=== PATIENT | female | born 1950 | race Asian ===

== ENCOUNTER 2019-08-28 10:00 | Outpatient (CLI) | payer MEDICARE, OTHER | END 2019-08-28 10:01 | disposition home or self-care (01) | LOC: DI 10:00 | PROVIDERS: ATTEND Internal Medicine | DX: R60.0 Localized edema (principal) | CPT/HCPCS: 93306 ==

== ENCOUNTER 2020-03-12 12:13 | Outpatient (CLI) | payer MEDICARE, OTHER ==
[2020-03-12 15:17] LABS: HGB - HEMOGLOBIN 10.3 g/dL (12.0-16.0); LYMPHOCYTES # (AUTO) 0.7 10^3/uL (1.5-3.5); LYMPHOCYTES % (AUTO) 23.2 %; MEAN CORPUSCULAR HEMOGLOBIN 41.7 pg (27.0-31.0); MEAN CORPUSCULAR HGB CONC 33.4 g/dL (32.0-36.0); MEAN CORPUSCULAR VOLUME 124.7 fL (81.0-99.0); MEAN PLATELET VOLUME 10.1 fL (7.9-10.8); MONOCYTES # (AUTO) 0.3 10^3/uL (0.0-1.0); NEUTROPHILS # (AUTO) 1.9 10^3/uL (1.5-6.6); NEUTROPHILS % (AUTO) 64.4 %; PLT - PLATELET COUNT 207 10^3/uL (130-450); RED BLOOD COUNT 2.47 10^6/uL (4.20-5.40); RED CELL DISTRIBUTION WIDTH 16.4 % (12.0-15.0); WHITE BLOOD COUNT 2.9 x10^3/uL (4.8-10.8)
[2020-03-12 15:23] LABS: INR 1.4 (0.8-1.2)
[2020-03-12 15:33] LABS: ALBUMIN 2.8 g/dL (3.2-5.5); BILIRUBIN,TOTAL 2.9 mg/dL (0.2-1.0); CREATININE 0.9 mg/dL (0.4-1.0); TOTAL PROTEIN 7.7 g/dL (6.7-8.2)
[2020-03-12 15:41] LABS: THYROID STIMULATING HORMONE 4.47 uIU/mL (0.34-5.60)
[2020-03-12 15:43] LABS: FREE T3 3.75 pg/mL (2.5-3.9)
[2020-03-12 15:47] LABS: FREE T4 (FREE THYROXINE) 0.94 ng/dL (0.58-1.64)
[2020-03-12 16:30] LABS: PLATELET ESTIMATE, MANUAL NORMAL (130-450,000) (NORMAL); PLATELET MORPHOLOGY NORMAL APPEARANCE (NORMAL)
[2020-03-12 16:31] LABS: DIFFERENTIAL COMMENT MANUAL=AUTO DIFF
== END 2020-03-12 12:14 | disposition home or self-care (01) ==
LOC: LAB.S 12:13
PROVIDERS: ATTEND Internal Medicine Gastroenterology
DX: K75.4 Autoimmune hepatitis (principal); E03.8 Other specified hypothyroidism
CPT/HCPCS: 36415; 80048; 80076; 84439; 84443; 84481; 85025; 85610

== ENCOUNTER 2020-03-19 09:36 | Outpatient (CLI) | payer MEDICARE, OTHER ==
[2020-03-19 15:05] LABS: BASOPHILS % (AUTO) 1.2 %; EOSINOPHILS # (AUTO) 0.1 10^3/uL (0.0-0.7); EOSINOPHILS % (AUTO) 4.4 %; HGB - HEMOGLOBIN 9.9 g/dL (12.0-16.0); LYMPHOCYTES # (AUTO) 0.4 10^3/uL (1.5-3.5); LYMPHOCYTES % (AUTO) 16.9 %; MEAN CORPUSCULAR HEMOGLOBIN 44.6 pg (27.0-31.0); MEAN CORPUSCULAR VOLUME 127.5 fL (81.0-99.0); MEAN PLATELET VOLUME 10.3 fL (7.9-10.8); MONOCYTES # (AUTO) 0.3 10^3/uL (0.0-1.0); MONOCYTES % (AUTO) 13.3 %; NEUTROPHILS # (AUTO) 1.6 10^3/uL (1.5-6.6); PLT - PLATELET COUNT 116 10^3/uL (130-450); RED BLOOD COUNT 2.22 10^6/uL (4.20-5.40); RED CELL DISTRIBUTION WIDTH 16.9 % (12.0-15.0); WHITE BLOOD COUNT 2.5 x10^3/uL (4.8-10.8)
[2020-03-19 15:22] LABS: INR 1.4 (0.8-1.2); PT - PROTHROMBIN TIME 15.3 secs (9.9-12.6)
[2020-03-19 15:25] LABS: ALBUMIN 2.6 g/dL (3.2-5.5); BILIRUBIN,DIRECT 0.9 mg/dL (0.1-0.5); BILIRUBIN,TOTAL 2.4 mg/dL (0.2-1.0); CALCIUM 8.4 mg/dL (8.5-10.3); CREATININE 0.8 mg/dL (0.4-1.0); TOTAL PROTEIN 6.9 g/dL (6.7-8.2)
[2020-03-19 16:09] LABS: PLATELET ESTIMATE, MANUAL DECREASED (<130,000) (NORMAL); PLATELET MORPHOLOGY NORMAL APPEARANCE (NORMAL); RBC MORPHOLOGY (MULTIPLE) 2+ ANISOCYTOSIS (NORMAL)
== END 2020-03-19 09:37 | disposition home or self-care (01) ==
LOC: LAB.S 09:36
PROVIDERS: ATTEND Internal Medicine Gastroenterology
DX: K76.4 Peliosis hepatis (principal); K75.4 Autoimmune hepatitis
CPT/HCPCS: 36415; 80048; 80076; 85025; 85610

== ENCOUNTER 2020-04-02 10:09 | Outpatient (CLI) | payer MEDICARE, OTHER ==
[2020-04-02 14:57] LABS: BASOPHILS % (AUTO) 1.1 %; EOSINOPHILS # (AUTO) 0.1 10^3/uL (0.0-0.7); EOSINOPHILS % (AUTO) 3.2 %; HGB - HEMOGLOBIN 10.8 g/dL (12.0-16.0); INR 1.5 (0.8-1.2); LYMPHOCYTES # (AUTO) 0.5 10^3/uL (1.5-3.5); LYMPHOCYTES % (AUTO) 25.1 %; MEAN CORPUSCULAR HEMOGLOBIN 43.7 pg (27.0-31.0); MEAN CORPUSCULAR HGB CONC 34.7 g/dL (32.0-36.0); MEAN CORPUSCULAR VOLUME 125.9 fL (81.0-99.0); MEAN PLATELET VOLUME 10.1 fL (7.9-10.8); MONOCYTES # (AUTO) 0.3 10^3/uL (0.0-1.0); MONOCYTES % (AUTO) 15.5 %; PLT - PLATELET COUNT 225 10^3/uL (130-450); PT - PROTHROMBIN TIME 16.7 secs (9.9-12.6); RED BLOOD COUNT 2.47 10^6/uL (4.20-5.40); RED CELL DISTRIBUTION WIDTH 15.9 % (12.0-15.0)
[2020-04-02 15:33] LABS: WHITE BLOOD COUNT 1.9 x10^3/uL (4.8-10.8)
[2020-04-02 15:36] LABS: ALBUMIN 2.9 g/dL (3.2-5.5); BILIRUBIN,DIRECT 0.9 mg/dL (0.1-0.5); BILIRUBIN,TOTAL 2.8 mg/dL (0.2-1.0); CREATININE 0.8 mg/dL (0.4-1.0); TOTAL PROTEIN 7.6 g/dL (6.7-8.2)
[2020-04-02 16:42] LABS: DIFFERENTIAL COMMENT MANUAL=AUTO DIFF; PLATELET ESTIMATE, MANUAL NORMAL (130-450,000) (NORMAL); PLATELET MORPHOLOGY NORMAL APPEARANCE (NORMAL)
== END 2020-04-02 10:10 | disposition home or self-care (01) ==
LOC: LAB.S 10:09
PROVIDERS: ATTEND Internal Medicine Gastroenterology
DX: K75.4 Autoimmune hepatitis (principal)
CPT/HCPCS: 36415; 80048; 80076; 85025; 85610

== ENCOUNTER 2020-05-29 11:11 | Outpatient (CLI) | payer MEDICARE, OTHER ==
[2020-05-29 15:08] LABS: BASOPHILS % (AUTO) 0.8 %; EOSINOPHILS # (AUTO) 0.1 10^3/uL (0.0-0.7); EOSINOPHILS % (AUTO) 3.5 %; HGB - HEMOGLOBIN 11.9 g/dL (12.0-16.0); LYMPHOCYTES # (AUTO) 0.5 10^3/uL (1.5-3.5); LYMPHOCYTES % (AUTO) 20.8 %; MEAN CORPUSCULAR HEMOGLOBIN 39.1 pg (27.0-31.0); MEAN CORPUSCULAR HGB CONC 33.6 g/dL (32.0-36.0); MEAN CORPUSCULAR VOLUME 116.4 fL (81.0-99.0); MEAN PLATELET VOLUME 9.9 fL (7.9-10.8); MONOCYTES # (AUTO) 0.4 10^3/uL (0.0-1.0); MONOCYTES % (AUTO) 16.5 %; NEUTROPHILS # (AUTO) 1.5 10^3/uL (1.5-6.6); NEUTROPHILS % (AUTO) 57.6 %; PLT - PLATELET COUNT 141 10^3/uL (130-450); RED BLOOD COUNT 3.04 10^6/uL (4.20-5.40); RED CELL DISTRIBUTION WIDTH 13.5 % (12.0-15.0); WHITE BLOOD COUNT 2.6 x10^3/uL (4.8-10.8)
[2020-05-29 15:11] LABS: ALBUMIN 3.1 g/dL (3.2-5.5); BILIRUBIN,DIRECT 0.4 mg/dL (0.1-0.5); BILIRUBIN,TOTAL 1.8 mg/dL (0.2-1.0); CALCIUM 9.2 mg/dL (8.5-10.3); CREATININE 0.9 mg/dL (0.4-1.0); TOTAL PROTEIN 7.3 g/dL (6.7-8.2)
[2020-05-29 15:53] LABS: INR 1.3 (0.8-1.2); PT - PROTHROMBIN TIME 14.3 secs (9.9-12.6)
[2020-05-29 16:21] LABS: PLATELET ESTIMATE, MANUAL NORMAL (130-450,000) (NORMAL); PLATELET MORPHOLOGY RARE GIANT PLATELETS (NORMAL)
== END 2020-05-29 11:12 | disposition home or self-care (01) ==
LOC: LAB.S 11:11
PROVIDERS: ATTEND Internal Medicine Gastroenterology
DX: K75.4 Autoimmune hepatitis (principal)
CPT/HCPCS: 36415; 80048; 80076; 85025; 85610

== ENCOUNTER 2021-07-19 11:57 | Outpatient (CLI) | payer MEDICARE, OTHER ==
[2021-07-19 15:30] LABS: THYROID STIMULATING HORMONE 3.67 uIU/mL (0.34-5.60)
[2021-07-19 15:33] LABS: FREE T3 3.06 pg/mL (2.5-3.9)
[2021-07-19 15:34] LABS: FREE T4 (FREE THYROXINE) 0.72 ng/dL (0.58-1.64)
== END 2021-07-19 11:58 | disposition home or self-care (01) ==
LOC: LAB.S 11:57
PROVIDERS: ATTEND Internal Medicine Endocrinology, Diabetes & Metabolism
DX: E03.9 Hypothyroidism, unspecified (principal)
CPT/HCPCS: 36415; 84439; 84443; 84481

== ENCOUNTER 2023-07-12 08:00 | Outpatient (CLI) | payer MEDICARE, OTHER | END 2023-07-12 23:59 | disposition home or self-care (01) | LOC: LAB.S 08:00 | PROVIDERS: ATTEND Physician Assistant Medical | DX: J02.9 Acute pharyngitis, unspecified (principal) | CPT/HCPCS: 87070 ==